=== PATIENT | male | born 1970 | race Caucasian/White ===

== ENCOUNTER 2021-06-13 18:49 | Inpatient (IN) ==
[2021-06-13 19:46] LABS: ABS Lymphocytes 1.7 10^3/ul (1.0-4.8); ABS Monocytes 0.6 10^3/ul (0-0.8); ABS Neutrophils 7.6 10^3/ul (1.5-7.7); Eosinophil % 0.5 %; Hematocrit 41 % (42-52); Hemoglobin 13.9 g/dL (14.0-18.0); Mean Corpuscular HGB Conc 34 g/dL (31-36); Mean Corpuscular Hemoglobin 33 pg (27-31); Mean Corpuscular Volume 96 fL (80-94); Mean Platelet Volume 7.5 fL (7.4-10.4); Platelet Count 300 10^3/uL (150-450); Red Blood Count 4.24 10^6 /uL (4.18-5.48); Red Cell Distribution Width 14 % (10-15); White Blood Count 9.9 10^3/uL (3.5-10.8)
[2021-06-13 20:01] LABS: ALT 20 U/L (7-52); AST 29 U/L (13-39); Albumin 4.5 g/dL (3.2-5.2); Albumin/Globulin Ratio 1.6 (1-3); Alkaline Phosphatase 71 U/L (35-149); Anion Gap 9 mmol/L (2-11); Blood Urea Nitrogen 16 mg/dL (6-24); CO2 Carbon Dioxide 27 mmol/L (22-32); Calcium 9.2 mg/dL (8.6-10.3); Chloride 102 mmol/L (101-111); Globulin 2.8 g/dL (2-4); Glucose 109 mg/dL (70-100); Potassium 3.1 mmol/L (3.5-5.0); Sodium 138 mmol/L (135-145); Total Protein 7.3 g/dL (6.4-8.9); eGFR CKD-EPI 102.7 (>60)
[2021-06-13 20:32] LABS: Acetaminophen < 15 mcg/mL; Alcohol, S < 13 mg/dL (<13); Salicylate < 2.50 mg/dL (<30)
[2021-06-13 20:48] LABS: TSH Ultra Thyroid Stim Horm 1.37 mcIU/mL (0.34-5.60)
[2021-06-14 05:06] LABS: Urine Appearance Clear; Urine Bilirubin Negative (Negative); Urine Blood Negative (Negative); Urine Color Yellow; Urine Glucose Negative (Negative); Urine Ketones Trace (Negative); Urine Nitrite Negative (Negative); Urine Protein Negative (Negative); Urine Specific Gravity 1.024 (1.002-1.030); Urine Urobilinogen Negative (Negative)
[2021-06-14 05:34] LABS: Urine Benzodiazepine Screen None Detected (None Detect); Urine Cannabinoids Screen None Detected (None Detect); Urine Opiates Screen None Detected (None Detect)
[2021-06-14 15:47] LABS: Potassium 4.6 mmol/L (3.5-5.0); eGFR CKD-EPI 97.5 (>60)
[2021-06-14] MEDS ORDERED: Al Hydrox/Mg Hydrox/Simet LIQ 30 ML UDC PO PRN (19:11)
[2021-06-15] MEDS: Vitamin THERAPEUTIC TAB PO SCH (09:03)
[2021-06-16] MEDS: Vitamin THERAPEUTIC TAB PO SCH (07:42)
[2021-06-17] MEDS: Vitamin THERAPEUTIC TAB PO SCH (08:55)
[2021-06-18] MEDS: Vitamin THERAPEUTIC TAB PO SCH (09:04)
[2021-06-19] MEDS: Vitamin THERAPEUTIC TAB PO SCH (09:06)
[2021-06-20] MEDS: Vitamin THERAPEUTIC TAB PO SCH (09:28)
[2021-06-21] MEDS: Vitamin THERAPEUTIC TAB PO SCH (08:49)
[2021-06-22] MEDS: Vitamin THERAPEUTIC TAB PO SCH (08:56)
[2021-06-23] MEDS: Vitamin THERAPEUTIC TAB PO SCH (09:17)
[2021-06-24] MEDS: Vitamin THERAPEUTIC TAB PO SCH (08:48)
[2021-06-25] MEDS: Vitamin THERAPEUTIC TAB PO SCH (08:57)
[2021-06-26] MEDS: Vitamin THERAPEUTIC TAB PO SCH (09:27)
[2021-06-27] MEDS: Vitamin THERAPEUTIC TAB PO SCH (09:11)
[2021-06-28] MEDS: Vitamin THERAPEUTIC TAB PO SCH (09:22)
[2021-06-29] MEDS: Vitamin THERAPEUTIC TAB PO SCH (09:16)
[2021-06-30] MEDS: Vitamin THERAPEUTIC TAB PO SCH (09:02)
[2021-06-30 09:22] VITALS: BP 131/85
== END 2021-06-30 12:30 | disposition home or self-care (01) | DRG 751 ==
LOC: ED 18:49 → BSU 06-14 08:03
PROVIDERS: ADMIT Psychiatry & Neurology Psychiatry; ATTEND Psychiatry & Neurology Psychiatry